=== PATIENT | male | born 1960 | race Caucasian/White ===

== ENCOUNTER 2017-09-20 12:34 | Emergency (ER) | payer BC, OTHER ==
[2017-09-20 13:55] LABS: CHLORIDE,CL 103 mmol/L (101-111); SODIUM,NA 137 mmol/L (135-145)
[2017-09-20] MEDS ORDERED: Iopamidol 612 MG/ML 100 ML Bottle IVPUSH ONE (14:00)
[2017-09-20] MEDS ORDERED: Iopamidol 755 Mg/ML 100 ML Bottle IVPUSH ONE (14:21)
--- NOTE | 2017-09-20 15:06 | CT ---
Clinical history: 57-year-old hypertensive 210 pound male with right groin pain (previous appendectom y). Scan technique: Volume acquisition of data emergency CT scan abdomen and pelvis obtained without oral contrast but during intravenous administration 75 cc nonionic Isovue contrast while patient was lyin g supine on the Siemens multi slice scanner [place], [place]. All data archived in the PACS system for storage, reformatting and study. Interpretation: 1. Fatty liver. Gallbladder, stomach, spleen, pancreas and adrenal glands unremarkable. Normal kidney s and bladder. 2. Normal cardiac silhouette. Lung bases clear. Normal caliber aorta iliac vessels with scattered mushtaq cifications. 3. Chronic severe lower lumbar disc disease L5-S1 level with associated hypertrophic spondylosis. 4. No sign of diverticulitis, abdominal or pelvic mass lesion, as enteric or retroperitoneal lymphade nopathy, mechanical bowel obstruction, ascites or free intraperitoneal air. (2 tiny punctate radioden sities, midline, anteriorly outside bladder. Urachus?) 5. No inguinal or ventral wall hernia. CONCLUSION: No acute intraperitoneal abnormality (appendectomy). Chronic L5-S1 disc disease.
[2017-09-20] MEDS ORDERED: Ketorolac 30 MG/ML SDV IM ONE (15:16)
--- NOTE | 2017-09-20 15:21 | EDM.PDOC ---
ED HPI GENERAL MEDICAL PROBLEM - General Chief Complaint: Abdominal Pain Stated Complaint: [id number] HERNIA Time Seen by Provider: 09/20/17 13:00 Source of Information: Reports: Patient, Family, RN - History of Present Illness INITIAL COMMENTS - FREE TEXT/NARRATIVE: Pt presents to the ER with c/o severe right groin pain that began Tuesday. He states the pain is not always there. He states he is afraid that he has a hernia , but has never had a history of a hernia. He denies any fever, chills, N/V/D, chest pain, or sob. He states the pain radiates from the right groin down the right thigh at times. He denies any heavy lifting recently. Onset: Today, Sudden Right Groin Pain Score (Numeric/FACES): 10 - Related Data Allergies Allergy/AdvReac Type Severity Reaction Status Date / Time No Known Allergies Allergy Verified 09/20/17 12:47 Home Meds: Home Meds Ibuprofen [IJD: Ibuprofen] 09/20/17 [History] Lisinopril [Lisinopril] 09/20/17 [History] Past Medical History Cardiovascular History: Reports: Hypertension - Past Surgical History GI Surgical History: Reports: Appendectomy Social & Family History - Family History Family Medical History: Noncontributory - Tobacco Use Smoking Status *Q: Light Tobacco Smoker Years of Tobacco use: 20 Packs/Tins Daily: 0 Second Hand Smoke Exposure: No - Caffeine Use Caffeine Use: Reports: Coffee - Recreational Drug Use Recreational Drug Use: No ED ROS GENERAL - Review of Systems Review Of Systems: ROS reveals no pertinent complaints other than HPI. ED EXAM, GI/ABD - Physical Exam Exam: See Below Exam Limited By: No Limitations General Appearance: Alert, WD/WN, No Apparent Distress Ears: Normal External Exam, Hearing Grossly Normal Nose: Normal Inspection Throat/Mouth: Normal Inspection, Normal Voice, No Airway Compromise Head: Atraumatic, Normocephalic Neck: Normal Inspection, Supple, Non-Tender, Full Range of Motion Respiratory/Chest: No Respiratory Distress, Lungs Clear, Normal Breath Sounds, No Accessory Muscle Use, Chest Non-Tender Cardiovascular: Normal Peripheral Pulses, Regular Rate, Rhythm, No Edema, No Gallop, No JVD, No Murmur, No Rub GI/Abdominal Exam: Normal Bowel Sounds, Soft, Non-Tender, No Organomegaly, No Distention, No Abnormal Bruit, No Mass (Male) Exam: No Hernia, Deferred Rectal (Males) Exam: Deferred Back Exam: Normal Inspection, Full Range of Motion Extremities: Normal Inspection, Normal Range of Motion, Non-Tender, No Pedal Edema, Normal Capillary Refill Neurological: Alert, Oriented, Normal Cognition, Normal Gait, No Motor/Sensory Deficits Psychiatric: Normal Affect, Normal Mood Skin Exam: Warm, Dry, Intact, Normal Color, No Rash Lymphatic: No Adenopathy Comments: Pain to the right groin comes and goes. Pt states the pain is sometimes relieved by lifting his right leg. Course - Vital Signs Last Recorded V/S: Last Vital Signs Temp 98.0 F 09/20/17 12:45 Pulse 99 09/20/17 12:45 Resp 16 09/20/17 12:45 BP 158/88 H 09/20/17 12:45 Pulse Ox 98 09/20/17 12:45 - Orders/Labs/Meds Orders: Active Orders 24 hr Category Date Time Status Orphenadrine [Norflex] Med 09/20/17 15:30 Active 60 mg IM Q12H Medication Orders Orphenadrine Citrate (Norflex) 60 mg IM Q12H THOR Labs: Laboratory Tests 09/20/17 09/20/17 Range/Units 13:28 13:28 WBC 8.6 (5.0-10.0) 10^3/uL RBC 4.89 (4.6-6.2) 10^6/uL Hgb 15.0 (14.0-18.0) g/dL Hct 44.8 (40.0-54.0) % MCV 91.6 (80-100) fL MCH 30.7 (27.0-34.0) pg MCHC 33.5 (33.0-35.0) g/dL Plt Count 277 (150-450) 10^3/uL Neut % (Auto) 60.1 (42.2-75.2) % Lymph % (Auto) 26.6 (20.5-50.1) % [place] % (Auto) 10.6 H (2-8) % Eos % (Auto) 2.1 (1.0-3.0) % Baso % (Auto) 0.6 (0.0-1.0) % Sodium 137 (135-145) mmol/L Potassium 4.2 (3.6-5.0) mmol/L Chloride 103 (101-111) mmol/L Carbon Dioxide 27.0 (21.0-31.0) mmol/L Anion Gap 11.2 BUN 16 (7-18) mg/dL Creatinine 1.2 (0.6-1.3) mg/dL Est Cr Clr Drug Dosing 55.50 mL/min Estimated GFR (MDRD) > 60 BUN/Creatinine Ratio 13.33 Glucose 99 (74-105) mg/dL Calcium 9.3 (8.4-10.2) mg/dl Total Bilirubin 0.5 (0.2-1.0) mg/dL AST 28 (10-42) IU/L ALT 42 (10-60) IU/L Alkaline Phosphatase 52 (42-121) IU/L Total Protein 7.1 (6.7-8.2) g/dl Albumin 4.3 (3.2-5.5) g/dl Globulin 2.8 Albumin/Globulin Ratio 1.54 Meds: Medications Generic Name Dose Route Start Last Admin Trade Name Freq PRN Reason Stop Dose Admin Orphenadrine Citrate 60 mg 09/20/17 15:30 Norflex IM Q12H THOR Discontinued Medications Generic Name Dose Route Start Last Admin Trade Name Freq PRN Reason Stop Dose Admin Iopamidol 100 ml 09/20/17 14:21 Isovue-370 (76%) IVPUSH 09/20/17 14:22 ONETIME ONE Ketorolac Tromethamine 60 mg 09/20/17 15:16 Toradol IM 09/20/17 15:17 ONETIME ONE - Radiology Interpretation Free Text/Narrative:: CT of Abdomen/Pelvis with contrast: No acute findings See rad report CT Results Date: 09/20/17 Departure - Departure Time of Disposition: 15:17 Disposition: Home, Self-Care 01 Condition: Good Clinical Impression: Muscle strain - Discharge Information Instructions: Muscle Strain, [id number] Forms: ED Department Discharge Additional Instructions: Rest Rx: Flexeril Rx: Toradol Follow up with your primary care facility next week. - My Orders Last 24 Hours: My Active Orders 09/20/17 15:30 Orphenadrine [Norflex] 60 mg IM Q12H - Assessment/Plan Last 24 Hours: My Active Orders 09/20/17 15:30 Orphenadrine [Norflex] 60 mg IM Q12H
== END 2017-09-20 15:53 | disposition home or self-care (01) ==
LOC: DL.ED 12:34
DX: S39.011A Strain of muscle, fascia and tendon of abdomen, initial encounter (principal); I10 Essential (primary) hypertension; F17.210 Nicotine dependence, cigarettes, uncomplicated; X50.0XXA Overexertion from strenuous movement or load, initial encounter
CPT/HCPCS: 36415; 74177; 80053; 81001; 85025; 96372; 99284; J1885; J2360; Q9967